=== PATIENT | female | born 1960 | race Hispanic/Latino ===

== ENCOUNTER 2017-10-13 18:33 | Inpatient (IN) | payer OTHER ==
[~2017-10-13] VITALS: Ht 152.4 cm; Wt 80.7 kg
[~2017-10-13 18:33] MED LIST: LEVEMIR100 UNIT/2; LEVOTHROID100 MC1; NOVOLOG100 UNIT/2; Z.0.ZOCOR20 MG
--- NOTE | 2017-10-13 19:19 | Diagnostic Imaging Report ---
CHEST SINGLE (PORTABLE), 10/13/2017 6:40 PM Technique: CHEST SINGLE (PORTABLE) Comparison: 08/02/2011 Clinical history: Shortness of breath Findings: See Impression Impression: 1. Stable enlarged cardiac silhouette. 2. Low lung volumes with right basilar opacity which could reflect atelectasis or pneumonia with small right effusion. Likely small left effusion. Recommend upright PA and lateral for better evaluation. 3. Probable underlying hiatal hernia. Signed by: Dr Cammie Centeno MD on 10/13/2017 7:16 PM
[2017-10-13] MEDS ORDERED: AZITHROMYCIN 500MG/NS 250 ML 250 ML IV STA (19:40)
[2017-10-13] MEDS ORDERED: CEFTRIAXONE SOD 1 GM VIAL IV ONE (19:45)
[2017-10-13 19:56] LABS: BASOPHILS % 0.8 % (0.0-1.0); HEMATOCRIT 28.2 % (34.2-44.1); HEMOGLOBIN 8.6 g/dL (12.0-16.0); LYMPHOCYTES # (AUTO) 0.2 (1.0-3.2); LYMPHOCYTES % 6.7 % (18.0-39.1); MEAN CORPUSCULAR HEMOGLOBIN 30.4 pg (28-32); MEAN CORPUSCULAR HGB CONC 30.5 g/dL (31-35); MEAN CORPUSCULAR VOLUME 99.6 fL (81-99); MONOCYTES # (AUTO) 0.2 (0.2-0.8); MONOCYTES % 6.3 % (4.4-11.3); NEUTROPHILS # (AUTO) 2.2 (2.1-6.9); NEUTROPHILS % 85.8 % (38.7-80.0); PLATELET COUNT 223 x10e3/uL (140-360); RED BLOOD COUNT 2.83 x10e6/uL (3.6-5.1); RED CELL DISTRIBUTION WIDTH 15.2 % (11.7-14.4)
[2017-10-13 20:03] LABS: ABG HCO3 7 mmol/L (23-28); ABG PCO2 23 mmHg (41-51); ABG PH 7.06 (7.31-7.41); ABG PO2 121 mmHg (80-105)
[2017-10-13 20:07] LABS: INR 1.39
[2017-10-13 20:08] LABS: PARTIAL THROMBOPLASTIN TIME 23.7 seconds (23.8-35.5)
[2017-10-13] MEDS ORDERED: FUROSEMIDE INJ 10 MG/ML 4 ML VIAL IV ONE (20:15)
[2017-10-13 20:19] LABS: ALANINE AMINOTRANSFERASE 218 IU/L (0-55); ALBUMIN/GLOBULIN RATIO 0.8 (0.8-2.0); ALKALINE PHOSPHATASE 316 IU/L (40-150); BLOOD UREA NITROGEN 76 mg/dL (7-26); BUN/CREATININE RATIO 15 (6-25); CALCIUM 8.1 mg/dL (8.4-10.2); CHLORIDE 101 mmol/L (98-107); CREATINE KINASE 56 IU/L (29-168); CREATININE, SERUM 5.17 mg/dL (0.57-1.11); EST GLOMERULAR FILTRATION RATE 9 ML/MIN (60-); SODIUM 128 mmol/L (136-145)
[2017-10-13 20:56] LABS: CARBON DIOXIDE 6 mmol/L (22-29); GLUCOSE 724 mg/dL (74-118)
[2017-10-13] MEDS ORDERED: INSULIN REGULAR, HUMAN 100 UNIT/1 ML 3ML VIAL IV STA (21:01)
[2017-10-13] MEDS ORDERED: DEXTROSE 5%/0.45% SOD CHL 1,000 ML IV SCH (21:01)
[2017-10-13] MEDS ORDERED: SODIUM CHLORIDE 0.9% 1000ML 1,000 ML IV SCH (21:01)
[2017-10-13 21:10] LABS: CLARITY,URINE CLOUDY (CLEAR); COLOR,URINE YELLOW (YELLOW)
[2017-10-13 21:11] LABS: LEUKOCYTE ESTERASE ,URINE NEGATIVE (NEGATIVE); NITRITE,URINE NEGATIVE (NEGATIVE)
[2017-10-13 21:12] LABS: KETONES,URINE NEGATIVE (NEGATIVE); PROTEIN,URINE DIPSTICK 2+ (NEGATIVE); URINE UROBILINOGEN 0.2 mg/dL (0.2 - 1)
[2017-10-13 21:13] LABS: BILIRUBIN,URINE 1+ (NEGATIVE)
[2017-10-13] MEDS ORDERED: SODIUM CHLORIDE 0.9% 1000ML 1,000 ML ONE (21:13)
[2017-10-13] MEDS ORDERED: DEXTROSE 50% SYRINGE 50 ML IV PRN (21:15)
[2017-10-13] MEDS ORDERED: INSULIN REGULAR, HUMAN 3ML VL 1 UNIT in SODIUM CHLORIDE 0.9% 100 ML IV SCH ×2 (21:15)
[2017-10-13] MEDS ORDERED: POTASSIUM CHLORIDE 20MEQ/100ML 200 ML IV PRN (21:15)
[2017-10-13] MEDS ORDERED: INSULIN DETEMIR 100 UNIT/ML PEN SQ PRN (21:15)
[2017-10-13] MEDS ORDERED: SODIUM CHLORIDE 0.9% 100 ML ONE (21:15)
[2017-10-13] MEDS ORDERED: MAGNESIUM SULF 1GRAM/DEXTROSE 100 ML IV PRN ×2 (21:15→21:30)
[2017-10-13 21:29] LABS: RBC,URINE 0-5 /HPF (0-5); WBC,URINE (MAN) 0-5 /HPF (0-5)
[2017-10-13 21:30] LABS: AMORPHOUS SEDIMENT,URINE MODERATE (FEW); BACTERIA,URINE MODERATE /HPF; EPITHELIAL CELLS,URINE MODERATE /LPF
[2017-10-13] MEDS: SODIUM CHLORIDE 0.9% 1000ML 1,000 ML IV SCH (21:30)
[2017-10-13] MEDS: [UNRECOGNIZED DRUG - OTHER] IV SCH ×2 (21:31)
[2017-10-13] MEDS: SODIUM CHLORIDE 0.45% IV SCH ×2 (21:31)
[2017-10-13] MEDS: HUMAN IV SCH ×2 (21:31)
[2017-10-13] MEDS: INSULIN REGULAR IV SCH ×2 (21:31)
--- OUTSIDE RECORDS SUMMARY | 2017-10-13 22:20 | XMS REPORT ---
Author Author [facility] Address Unknown Phone Unavailable Care Team Providers Care Outboard Technician Name Role Phone ALYCE HOYT Unavailable Unavailable Problems This patient has no known problems. Allergies, Adverse Reactions, Alerts This patient has no known allergies or adverse reactions. Medications This patient has no known medications. Results Test Description Test Time Test Comments Text Results Atomic Results Result Comments CHEST SINGLE (PORTABLE) [place] [address] Patient Name: STEPHANIE GRAHAM MR #: [id number] : 1960 Age/Sex: 57/F Req #: [id number] Adm Physician: Ordered by: ALYCE HOYT MD Report #: [id number] Location: ER Room/Bed: Procedure: [id number] DX/CHEST SINGLE (PORTABLE) Exam Date: Exam Time: REPORT STATUS: Signed CHEST SINGLE (PORTABLE), 6:40 PM Technique: CHEST SINGLE (PORTABLE) Comparison: 08/02/2011 Clinical history: Shortness of breath Findings: See Impression Impression: 1. Stable enlarged cardiac silhouette. 2. Low lung volumes with right basilar opacity which could reflect atelectasis or pneumonia with small right effusion. Likely small left effusion. Recommend upright PA and lateral for better evaluation. 3. Probable underlying hiatal hernia. Signed by: Dr Rom Centeno MD on 10/13/2017 7:16 PM Dictated By: ROM CENTENO MD 15 Transcribed By: JADA on 10/13/171915 COPY TO: ALYCE HOYT MD
[2017-10-13] MEDS: FAMOTIDINE 20 MG/2 ML VIAL IV SCH ×2 (22:52→23:15)
[2017-10-14] VITALS (63 sets, daily range): BP systolic 107–157; BP diastolic 55–93
[2017-10-14 01:14] LABS: ANION GAP 21.8 mmol/L (8-16); CALCIUM 8.1 mg/dL (8.4-10.2); CREATININE, SERUM 5.13 mg/dL (0.57-1.11); MAGNESIUM 2.5 MG/DL (1.3-2.1); POTASSIUM 4.8 mmol/L (3.5-5.1)
[2017-10-14 01:37] LABS: CREATINE KINASE 54 IU/L (29-168)
[2017-10-14] MEDS ORDERED: DEXTROSE 5%/0.45% SOD CHL 1,000 ML IV ONE (04:52)
[2017-10-14 04:54] LABS: BASOPHILS % 0.3 % (0.0-1.0); EOSINOPHILS % 0.8 % (0.0-6.0); HEMATOCRIT 25.5 % (34.2-44.1); HEMOGLOBIN 8.3 g/dL (12.0-16.0); LYMPHOCYTES # (AUTO) 0.3 (1.0-3.2); LYMPHOCYTES % 7.7 % (18.0-39.1); MEAN CORPUSCULAR HEMOGLOBIN 30.3 pg (28-32); MEAN CORPUSCULAR HGB CONC 32.5 g/dL (31-35); MEAN CORPUSCULAR VOLUME 93.1 fL (81-99); MONOCYTES # (AUTO) 0.5 (0.2-0.8); NEUTROPHILS # (AUTO) 3.1 (2.1-6.9); NEUTROPHILS % 77.9 % (38.7-80.0); PLATELET COUNT 186 x10e3/uL (140-360); RED BLOOD COUNT 2.74 x10e6/uL (3.6-5.1); RED CELL DISTRIBUTION WIDTH 14.6 % (11.7-14.4)
[2017-10-14 05:10] LABS: ALBUMIN 2.9 g/dL (3.5-5.0); ALBUMIN/GLOBULIN RATIO 0.8 (0.8-2.0); ANION GAP 17.5 mmol/L (8-16); CALCIUM 8.3 mg/dL (8.4-10.2); CREATININE, SERUM 5.05 mg/dL (0.57-1.11); POTASSIUM 4.5 mmol/L (3.5-5.1)
[2017-10-14 05:34] LABS: CHOL/HDL RATIO 2.3 (3.0-3.6)
[2017-10-14 05:42] LABS: CREATINE KINASE 67 IU/L (29-168)
[2017-10-14] MEDS ORDERED: AMLODIPINE BESY10 MG PO (06:06)
[2017-10-14] MEDS ORDERED: METOPROLOL TART50 MG PO (06:07)
[2017-10-14] MEDS: HUMAN IV SCH ×2 (08:33)
[2017-10-14] MEDS: SODIUM CHLORIDE 0.45% IV SCH ×2 (08:33)
[2017-10-14] MEDS: [UNRECOGNIZED DRUG - OTHER] IV SCH ×2 (08:33)
[2017-10-14] MEDS: INSULIN REGULAR IV SCH ×2 (08:33)
[2017-10-14] MEDS: AZITHROMYCIN 500MG/NS 250 ML 250 ML IV SCH (09:18)
[2017-10-14] MEDS: FAMOTIDINE 20 MG/2 ML VIAL IV SCH (09:18)
[2017-10-14] MEDS: CEFTRIAXONE SOD 1 GM VIAL IV SCH ×2 (09:18→20:15)
[2017-10-14 09:57] LABS: ANION GAP 15.7 mmol/L (8-16); CALCIUM 8.2 mg/dL (8.4-10.2); CREATININE, SERUM 4.74 mg/dL (0.57-1.11); MAGNESIUM 2.4 MG/DL (1.3-2.1); POTASSIUM 4.7 mmol/L (3.5-5.1)
--- NOTE | 2017-10-14 11:51 | Diagnostic Imaging Report ---
PROCEDURE:ULTRASOUND GUIDANCE FOR VASCULAR ACCESS COMPARISON:None. INDICATIONS:HD Júnior cath in rt IJV FINDINGS:Right internal jugular vein is noted to be patent. Ultrasound guidance was utilized for access for temporary central venous hemodialysis catheter placement. CONCLUSION: Patent right internal jugular vein. Successful ultrasound guidance for central catheter placement. Dictated by: Froylan Ramos M.D. on 10/14/2017 at 11:53 Electronically approved by: Froylan Ramos M.D. on 10/14/2017 at 11:53
--- NOTE | 2017-10-14 11:54 | Diagnostic Imaging Report ---
PROCEDURE:NON-TUNNELLED CVC CATH PLACMNT COMPARISON:None. INDICATIONS: Renal failure COMPLICATIONS: None. MEDICATIONS: None. BLOOD LOSS: Less than 2 cc. PROCEDURE: The procedure was performed at the bedside in the intensive care unit. Focused sonographic evaluation of the right neck demonstrated a patent and compressible right internal jugular vein. A safe approach was determined. The right neck was prepped and draped in the usual sterile fashion. 1% lidocaine was infused into the subcutaneous tissues for local anesthesia. Utilizing direct sonographic guidance, a 21 gauge needle was advanced into the right internal jugular vein. A 0.018 inch wire was advanced centrally. An access sheath was placed over the wire to secure the vascular access. The wire was upsized to a 0.035 inch wire. Serial dilations were performed over the wire. A temporary double lumen hemodialysis catheter was advanced over the wire. The wire was removed. The catheter lumens demonstrated proper function with aspiration and flush of sterile saline. The catheter lumens were flushed with sterile saline. The catheter was secured to the skin with 3-0 Ethilon suture. A sterile dressing was applied. No immediate complications. The patient tolerated the procedure well. The patient remained in the intensive care unit in stable unchanged condition. A portable chest radiograph was ordered to confirm proper position of the catheter. CONCLUSION: Successful placement of right internal jugular temporary central venous hemodialysis catheter utilizing ultrasound guidance. Dictated by: Froylan Ramos M.D. on 10/14/2017 at 11:56 Electronically approved by: Froylan Ramos M.D. on 10/14/2017 at 11:56
--- NOTE | 2017-10-14 12:07 | Consultation ---
DATE OF CONSULTATION: October 14, 2017 HISTORY OF PRESENT ILLNESS: This is a 57-year-old lady who is currently in the ICU, a clinic patient of ours, underlying chronic kidney disease, stage 4, nearing end-stage renal disease. She was found to have advanced kidney failure with no urine output. Anemic with hemoglobin 8.3. Chemistries: Potassium 4.7. Bicarbonate 17. Creatinine 4.7. Magnesium 2.4. She is currently lying supine. She complains of weakness and nausea. No vomiting. No hematemesis. No melena. No chest pains. Has had blood and urine cultures drawn. Urinalysis shows relatively benign microscopy but 2+ positive protein, 2+ positive glucose. She had significantly elevated blood sugar when she had first come. There was no acetone done. Dr. Shetty of endocrinology consulted. PAST MEDICAL HISTORY: Significant for diabetic nephropathy, neuropathy, retinopathy, hypertension. SOCIAL HISTORY: Does not smoke or drink. FAMILY HISTORY: Significant for hypertension. CURRENT MEDICATIONS: Please see MAR for details. Apparently on azithromycin. D5 half-NS which has been stopped. She was given apparent potassium supplementation. She is currently on NS at 50 mL an hour. Ceftriaxone 1 gram q.12. Famotidine 20 mg IV q.12. Insulin. PHYSICAL EXAMINATION GENERAL: Awake, alert, lying supine, no apparent distress. VITALS: Blood pressure 125/74. Pulse rate 73. Afebrile. HEAD AND NECK: Corneas clear. Oral mucosa dry. Neck veins flat. LUNGS: Clear. No rales. HEART: S1, S2 audible. ABDOMEN: Otherwise soft and nontender. LOWER EXTREMITIES: There is 1+ edema. IMPRESSION AND PLAN 1. Advanced kidney failure. 2. Metabolic acidosis. 3. Uncontrolled diabetes. 4. Possible diabetic ketoacidosis. 5. Evidence of edema and third-spacing. 6. Proteinuria. 7. Underlying diabetic nephropathy. 8. Chronic kidney disease, stage 4 now, probably chronic kidney disease, stage 5. Will initiate hemodialysis, patient agrees. I will discuss with Dr. Lucio. Job#: [id number]
[2017-10-14] MEDS ORDERED: SODIUM CHLORIDE 0.9% 1000ML 1,000 ML ONE (12:12)
[2017-10-14] MEDS ORDERED: ALBUMIN HUMAN 100 ML IV ONE (12:13)
[2017-10-14] MEDS ORDERED: MANNITOL 25% 12.5GM/50ML 100 ML ONE (12:13)
--- NOTE | 2017-10-14 13:07 | Diagnostic Imaging Report ---
PROCEDURE: A single AP view of the chest. COMPARISON: Portable chest 10/14/2017. INDICATIONS: HD CATHETER PLACEMENT FINDINGS: Lines/tubes: Right internal jugular temporary central venous catheter with tip projecting over the expected region of the superior vena cava. Lungs: The lungs are well inflated and clear. There is no evidence of pneumonia or pulmonary edema. Pleura: Moderate right and small left pleural effusions. No pneumothorax. Heart and mediastinum: The heart and the mediastinum are unremarkable. Atherosclerotic calcifications. Bones: No acute bony abnormality. IMPRESSION: No acute radiographic abnormality. Dictated by: Froylan Ramos M.D. on 10/14/2017 at 13:09 Electronically approved by: Froylan Ramos M.D. on 10/14/2017 at 13:09
--- NOTE | 2017-10-14 13:12 | Consultation ---
DATE OF CONSULTATION: October 14, 2017 CARDIOLOGY CONSULTATION REASON FOR CONSULTATION: Evaluate cardiac status. HISTORY: This is a 57-year-old lady, who is known with longstanding history of diabetes mellitus. Patient is followed in the renal clinic and by Dr. Lucio. She is stage-4 renal failure in the office. For the last 4 or 5 days, she was not feeling well with more severe shortness of breath. She came to the emergency room. She was in diabetic ketoacidosis with CO2 of 10. Her ABG showed pH of only 7.06 and pO2 121. Also was in worsening renal failure. Patient treated aggressively with IV fluids and Lasix for diabetic ketoacidosis. She is having shortness of breath. Her EKG showed abnormality with prolongation of QT. Cardiac consultation is obtained. I visited with the patient, and she denied having any cardiac history before; i.e., no known myocardial infarction or congestive heart failure. She does have easy fatigability and shortness of breath on minimal activity for a few years. Her activities are limited by her bilateral Charcot ankle joints. Even at this level of activity, she gets "short-winded" and tires very easily. She does have occasional cough. No syncope or presyncope. Feet swelling is noted more than once. REVIEW OF SYSTEMS GENERAL: No fever. No chills. Failure to thrive recently. CARDIAC: As per above. PULMONARY: Shortness of breath on exertion. GI: Bloating, indigestion, occasional nausea, no hematemesis. : Increased frequency of urination but small quantity. MUSCULAR: Backache, joint aches. NEUROLOGIC: Severe peripheral neuropathy symptoms. No seizures. No localized weakness. SOCIAL HISTORY: She is . She is a nonsmoker and not an alcohol drinker. HOME MEDICATIONS: Include: 1. Norvasc 10 mg a day. 2. NovoLog 10 mg t.i.d. 3. Metoprolol 50 mg twice a day. 4. Synthroid 150 mcg a day. 5. Zocor 20 mg a day. ALLERGIES: MEPERIDINE. PAST MEDICAL HISTORY 1. Diabetes mellitus, severe end-organ damage. 2. Chronic renal insufficiency. 3. Severe peripheral neuropathy. 4. Admission with diabetic ketoacidosis. 5. History of bilateral feet ulcers and osteomyelitis treated with 6 months of antibiotic in 2010. 6. Chronic anemia. 7. Chronic renal insufficiency. 8. . 9. Bilateral foot surgery and debridement. 10. Hiatus hernia. FAMILY HISTORY: Father , questionable cause of . He was diabetic. Mother is alive. She is diabetic, and several of her siblings are diabetic but no myocardial infarction. PHYSICAL EXAMINATION VITALS: Height of 5 feet, weight of 178 pounds. Blood pressure 130/60. Heart rate of 80. Respiratory rate of 18. Afebrile. HEENT: Pupils are reactive. NECK: No elevation of jugular venous pulsation. CHEST: Decreased air entry with a few crackles. HEART: PMI at 1st left intercostal space, normal 1st and 2nd heart sounds. ABDOMEN: Soft with good bowel sounds. Scar of previous is noted with deformity of the abdominal wall. EXTREMITIES: Bilateral edema. Marked deformity of the feet at the ankle joints. NEUROLOGIC: Awake, alert, oriented, able to move all extremities. LAB DATA: Admission ABG showed pH of 7.06. Bicarb was only at 10. BUN at 74 and creatinine of 4.7. Hemoglobin of 8.3, hematocrit 25%, white blood cells 3.9. IMPRESSION AND PLAN 1. Diabetes mellitus with severe end-organ damage. 2. Chronic renal insufficiency. 3. Hypertension. 4. Hypercholesterolemia. 5. Chronic anemia. 6. Admission with diabetic ketoacidosis. 7. Charcot joint and deformity of the feet. 8. Peripheral arterial vascular disease. 9. History to suggest either diastolic heart failure or possible angina prior to admission. 10. Prolonged QT noted on EKG on admission, most likely secondary to marked electrolyte imbalance. Cardiac-oden, my recommendation is to review her echocardiogram ordered. Will control her blood pressure and her volume status. Will correct her diabetic ketoacidosis. Further steps to be done as needed. Cardiac, we are leaning towards more of a conservative approach until the acute illness resolves. Probably will consider cardiac stress test in the future. Will follow the patient's progression with you and would like to thank you for your kind referral. Job#: [id number]
[2017-10-14] MEDS ORDERED: INSULIN REGULAR, HUMAN 3ML VL 100 UNIT in SODIUM CHLORIDE 0.45% 100 ML 99 ML IV SCH ×2 (14:06)
[2017-10-14] MEDS ORDERED: DEXTROSE 50% SYRINGE 50 ML IV PRN (14:15)
--- NOTE | 2017-10-14 14:49 | Consultation ---
DATE OF CONSULTATION: October 14, 2017 ENDOCRINE CONSULTATION Thank you very much for referring this patient. This is a 57-year-old female who was referred to me for evaluation of uncontrolled diabetes mellitus and diabetic ketoacidosis. According to the patient, she came to the hospital with a history of shortness of breath and some chest discomfort. On further evaluation, her blood sugar was found to be 724. Anion gap was 27, and the BUN and creatinine was 76 and 5.17. Her liver enzymes were also significantly elevated. Patient is a known diabetic for almost 25 years, and takes insulin from [employer] twice a day. She also was found to have congestive cardiac failure. Patient has been dialyzed. PHYSICAL EXAMINATION GENERAL: Today, patient is alert, awake and a little bit apprehensive. VITALS: Her heart rate is around 100, blood pressure 130/80 mmHg. HEENT: Essentially unremarkable. Thyroid is palpable. Clinically, she is near euthyroid. CHEST: Bilateral vesicular breathing. She has mild bronchospasm. CARDIAC: Both 1st and 2nd heart sounds. There is no 3rd or 4th heart sound. There is an ejection systolic murmur, grade 2/6. EXTREMITIES: She has bilateral pedal edema and slightly distended abdomen. CLINICAL IMPRESSION 1. Diabetes mellitus, type 2, uncontrolled with complications. 2. Diabetic ketoacidosis. 3. [id number] chronic renal failure. 4. Hypertension. The plan at this time is to adjust the insulin drip settings. Monitor her blood sugars closely. Will do a hemoglobin A1c and thyroid function test. Patient needs extensive diabetic and dietary education as well. Thanks for referring this patient. Will follow this patient with you. Job#: [id number] MAURA SOLO
[2017-10-14] MEDS ORDERED: HEPARIN SOD (PORCINE) 1000 UNIT/ML SDV ONE (15:17)
[2017-10-14] MEDS: SODIUM CHLORIDE 0.9% 1000ML 1,000 ML IV SCH (18:49)
[2017-10-14 20:35] LABS: ANION GAP 15.2 mmol/L (8-16); CALCIUM 8.1 mg/dL (8.4-10.2); CREATININE, SERUM 3.49 mg/dL (0.57-1.11); POTASSIUM 4.2 mmol/L (3.5-5.1)
[2017-10-15] VITALS (52 sets, daily range): BP systolic 131–159; BP diastolic 69–132
[2017-10-15 06:19] LABS: BASOPHILS % 0.5 % (0.0-1.0); EOSINOPHILS # (AUTO) 0.1 (0.0-0.4); EOSINOPHILS % 2.2 % (0.0-6.0); HEMATOCRIT 27.4 % (34.2-44.1); HEMOGLOBIN 9.3 g/dL (12.0-16.0); LYMPHOCYTES # (AUTO) 0.4 (1.0-3.2); LYMPHOCYTES % 7.9 % (18.0-39.1); MEAN CORPUSCULAR HEMOGLOBIN 30.6 pg (28-32); MEAN CORPUSCULAR HGB CONC 33.9 g/dL (31-35); MEAN CORPUSCULAR VOLUME 90.1 fL (81-99); MONOCYTES # (AUTO) 0.3 (0.2-0.8); MONOCYTES % 5.9 % (4.4-11.3); NEUTROPHILS # (AUTO) 4.6 (2.1-6.9); NEUTROPHILS % 83.1 % (38.7-80.0); PLATELET COUNT 195 x10e3/uL (140-360); RED BLOOD COUNT 3.04 x10e6/uL (3.6-5.1); RED CELL DISTRIBUTION WIDTH 14.7 % (11.7-14.4)
[2017-10-15 06:55] LABS: ALBUMIN 2.6 g/dL (3.5-5.0); ALBUMIN/GLOBULIN RATIO 0.8 (0.8-2.0); ANION GAP 14.9 mmol/L (8-16); CALCIUM 8.1 mg/dL (8.4-10.2); CREATININE, SERUM 3.41 mg/dL (0.57-1.11); POTASSIUM 3.9 mmol/L (3.5-5.1)
[2017-10-15 07:50] LABS: CREATINE KINASE 42 IU/L (29-168)
[2017-10-15 08:02] LABS: EOSINOPHILS % (MANUAL) 4 % (0-7); LYMPHOCYTES % (MANUAL) 73 % (19-48); MONOCYTES % (MANUAL) 5 % (3.4-9.0); NEUTROPHILS % (MANUAL) 18 % (40-74)
[2017-10-15 08:03] LABS: ANISOCYTOSIS SLIGHT; HYPOCHROMASIA SLIGHT; PLATELET ESTIMATE ADEQUATE; PLATELET MORPHOLOGY COMMENT NORMAL; SMUDGE CELLS FEW
[2017-10-15 08:04] LABS: RBC MORPHOLOGY COMMENT ABNORMAL
[2017-10-15 08:31] LABS: FREE T4 (FREE THYROXINE) 0.93 ng/dL (0.9-1.8); THYROID STIMULATING HORMONE 1.382 uIU/mL (0.350-4.940)
[2017-10-15] MEDS: AZITHROMYCIN 500MG/NS 250 ML 250 ML IV SCH (08:45)
[2017-10-15] MEDS: CEFTRIAXONE SOD 1 GM VIAL IV SCH (08:45)
[2017-10-15] MEDS: INSULIN DETEMIR 100 UNIT/ML PEN SQ SCH (10:06)
[2017-10-15] MEDS: FAMOTIDINE 20 MG/2 ML VIAL IV SCH (11:00)
--- NOTE | 2017-10-15 11:31 | Diagnostic Imaging Report ---
PROCEDURE:US RETROPERITONEAL ( KIDNEY ). COMPARISON:None. INDICATIONS:KIDNEY FAILURE TECHNIQUE: Bernal-scale and color sonographic images of the bilateral kidneys and bladder where obtained in transverse and longitudinal planes. FINDINGS: RIGHT KIDNEY: Measures 9.3 x 3.6 x 4.2 cm, cortex 1.2 cm Cysts: None Solid masses: None Stones: None Hydronephrosis: None Echogenicity: None LEFT KIDNEY: Measures 8.3 x 4.1 x 4.2 cm, cortex1.7 cm Cysts: None Solid masses: None Stones: None Hydronephrosis: None Echogenicity: None Bladder: Bladder is decompressed by a Martins catheter. Other: There are bilateral pleural effusions. CONCLUSION: No evidence of hydronephrosis. Jose Luis Mckeon D.O. Dictated by: Jose Luis Mckeon D.O. on 10/15/2017 at 11:32 Electronically approved by: Jose Luis Mckeon D.O. on 10/15/2017 at 11:32
--- NOTE | 2017-10-15 13:16 | History and Physical ---
CHIEF COMPLAINT: DKA with end-stage renal disease requiring dialysis. HISTORY OF PRESENT ILLNESS: Patient is a 57-year-old female who was told that she needs dialysis, but she was noncompliant and not getting the treatment. The patient came in with blood sugar in the 700s, metabolic acidosis, DKA, and renal failure. The patient required emergent dialysis. She is otherwise stable. At baseline, she does have diabetes, type 2, uncontrolled with multiple complications including end-stage renal disease. Hypertension and hyperlipidemia. PAST SURGICAL HISTORY: Noncontributory. SOCIAL HISTORY: Patient does not smoke or use alcohol. No recreational drugs. HOME MEDICATIONS: Not available. ALLERGIES: MEPERIDINE. REVIEW OF SYSTEMS: Significant for acute dialysis with dehydration, ketoacidosis. PHYSICAL EXAMINATION VITAL SIGNS: Temperature 98, blood pressure 141/76, pulse rate 85, respirations 18. GENERAL: The patient is fatigued and not in any distress. HEENT: Normocephalic and atraumatic. Anicteric. NECK: No palpable JVD. PULMONARY: Diminished breath sounds bilaterally. CARDIOVASCULAR: S1 and S2, regular rate and rhythm. ABDOMEN: Soft. EXTREMITIES: There is 1+ edema. NEURO: No focal deficit. LABORATORY: WBC 2.5, hemoglobin 8.6, hematocrit 28.2, platelets 223. Sodium is 128, potassium 6.0, chloride 101, bicarb 6, BUN 76, creatinine 5.2, glucose 724. Elevation of liver enzymes. IMPRESSION 1. Diabetic ketoacidosis. 2. Severe metabolic acidosis. 3. End-stage renal disease requiring dialysis. 4. Acute hepatitis, most likely nonviral. PLAN: Dialysis. Electrolyte disorder correction. Insulin drip. DKA insulin protocol. Dr. Jennifer Alcantara and Dr. Rashaad Shetty on consult. IV fluids. Check multiple labs. Check lactic acid. Will monitor the patient closely in ICU on dialysis. Job#: [id number]
[2017-10-15] MEDS: SODIUM CHLORIDE 0.9% 1000ML 1,000 ML IV SCH (13:29)
[2017-10-15] MEDS ORDERED: HEPARIN SOD (PORCINE) 1000 UNIT/ML SDV ONE (13:34)
[2017-10-15] MEDS: INSULIN LISPRO 100 UNIT/1 ML 3ML VIAL SQ SCH ×3 (16:30→21:00)
[2017-10-16] VITALS (44 sets, daily range): BP systolic 127–169; BP diastolic 70–89
[2017-10-16] MEDS: CEFTRIAXONE SOD 1 GM VIAL IV SCH ×2 (00:01→14:10)
[2017-10-16] MEDS: FAMOTIDINE 20 MG/2 ML VIAL IV SCH ×3 (00:01→23:32)
[2017-10-16 06:16] LABS: BASOPHILS # (AUTO) 0.1 (0.0-0.1); EOSINOPHILS # (AUTO) 0.1 (0.0-0.4); EOSINOPHILS % 2.2 % (0.0-6.0); HEMATOCRIT 29.8 % (34.2-44.1); HEMOGLOBIN 9.8 g/dL (12.0-16.0); LYMPHOCYTES # (AUTO) 0.3 (1.0-3.2); LYMPHOCYTES % 5.9 % (18.0-39.1); MEAN CORPUSCULAR HEMOGLOBIN 30.5 pg (28-32); MEAN CORPUSCULAR HGB CONC 32.9 g/dL (31-35); MEAN CORPUSCULAR VOLUME 92.8 fL (81-99); MONOCYTES # (AUTO) 0.3 (0.2-0.8); MONOCYTES % 5.7 % (4.4-11.3); NEUTROPHILS # (AUTO) 4.3 (2.1-6.9); NEUTROPHILS % 84.8 % (38.7-80.0); PLATELET COUNT 185 x10e3/uL (140-360); RED BLOOD COUNT 3.21 x10e6/uL (3.6-5.1); RED CELL DISTRIBUTION WIDTH 14.9 % (11.7-14.4)
[2017-10-16 06:47] LABS: ALBUMIN 2.8 g/dL (3.5-5.0); ALBUMIN/GLOBULIN RATIO 0.8 (0.8-2.0); ANION GAP 20.7 mmol/L (8-16); CALCIUM 8.3 mg/dL (8.4-10.2); CREATININE, SERUM 2.75 mg/dL (0.57-1.11); POTASSIUM 4.7 mmol/L (3.5-5.1)
[2017-10-16] MEDS: INSULIN LISPRO 100 UNIT/1 ML 3ML VIAL SQ SCH ×7 (06:55→20:40)
[2017-10-16] MEDS: ASPIRIN 81 MG ENTERIC COATED PO SCH (09:11)
[2017-10-16] MEDS: SODIUM BICARBONATE 650 MG TAB PO SCH ×2 (09:11→17:52)
[2017-10-16] MEDS: INSULIN DETEMIR 100 UNIT/ML PEN SQ SCH (09:12)
[2017-10-16] MEDS: SODIUM CHLORIDE 0.9% 1000ML 1,000 ML IV SCH (09:15)
[2017-10-16 09:55] LABS: % IRON SATURATION 31 % (15-50); IRON 75 ug/dL (50-170); TOTAL IRON BINDING CAPACITY 241 ug/dL (261-478); TRANSFERRIN 172 mg/dL (180-382)
[2017-10-16] MEDS ORDERED: SODIUM CHLORIDE 0.9% 250ML 500 ML IV PRN (12:45)
[2017-10-16] MEDS ORDERED: ALBUMIN HUMAN 12.5GM / 50ML IV PRN (12:45)
[2017-10-16] MEDS ORDERED: HEPARIN SOD (PORCINE) 1000 UNIT/ML SDV IV PRN (12:45)
[2017-10-16] MEDS ORDERED: MANNITOL 25% 12.5GM/50 ML VIAL IV PRN (12:45)
[2017-10-16] MEDS ORDERED: SODIUM CHLORIDE 0.9% 1000ML 2,000 ML IV PRN (12:45)
[2017-10-16] MEDS: AZITHROMYCIN 500MG/NS 250 ML 250 ML IV SCH (14:10)
[2017-10-17] VITALS (8 sets, daily range): BP systolic 158–170; BP diastolic 74–85
[2017-10-17] MEDS: CEFTRIAXONE SOD 1 GM VIAL IV SCH ×2 (02:00→15:07)
[2017-10-17] MEDS: INSULIN LISPRO 100 UNIT/1 ML 3ML VIAL SQ SCH ×7 (07:30→17:54)
[2017-10-17] MEDS: ASPIRIN 81 MG ENTERIC COATED PO SCH (09:00)
[2017-10-17] MEDS ORDERED: SODIUM CHLORIDE 0.9% 500ML 500 ML ONE ×2 (11:49→11:51)
[2017-10-17] MEDS ORDERED: LIDOCAINE HCL 2% LOCAL 20 ML VIAL ONE (11:49)
[2017-10-17] MEDS ORDERED: HEPARIN SOD (PORCINE) 1000 UNIT/ML 30ML ONE (11:50)
[2017-10-17] MEDS ORDERED: FENTANYL CITRATE/PF 100MCG/2 ML INJ ONE (11:51)
[2017-10-17] MEDS ORDERED: MIDAZOLAM HCL 2 MG/2 ML VIAL ONE (11:51)
[2017-10-17] MEDS: FAMOTIDINE 20 MG/2 ML VIAL IV SCH (13:25)
[2017-10-17] MEDS: AZITHROMYCIN 500MG/NS 250 ML 250 ML IV SCH (13:25)
[2017-10-17] MEDS: SODIUM BICARBONATE 650 MG TAB PO SCH ×2 (13:25→16:24)
--- NOTE | 2017-10-17 13:40 | Diagnostic Imaging Report ---
Date and Time: 10/17/2017 at 1152 hours Procedure: Right internal jugular tunneled hemodialysis catheter placement salt operator: Dr. May Pre-operative diagnosis: End-stage renal disease Post-operative diagnosis: End-stage renal disease Conscious Sedation: Versed 1 mg and Fentanyl 50 mcg. The patient's heart rate and pulse oximetry were continuously monitored by the interventional radiology nurse. Blood pressure was monitored at 5 minute intervals. Additional Medications: Lidocaine 1% for local anesthesia Fluoroscopy time: 1.4 minutes Dose-area Product: 363.0 cGycm2. Contrast used: 0 Estimated blood loss: Less than 5 cc Blood products administered: None Specimens: None Implants: 16 Ecuadorean, 19 cm tip-cuff tunneled hemodialysis catheter Condition at completion of procedure: Stable Disposition: Catheter lab recovery DISCUSSION: Informed consent for the procedure was obtained from the patient after discussion of risks and benefits. The right neck and upper chest was prepped and draped in the standard sterile fashion after the patient was placed in the supine position on the fluoroscopic table. 1% lidocaine was administered into the skin and subcutaneous tissues of the right lower neck for local anesthesia. Then, under continuous sonographic guidance, a 21-gauge micropuncture needle was advanced into the right internal jugular vein. A 0.018 inch wire was advanced centrally under fluoroscopic guidance. The needle was then removed and access was secured with a micropuncture sheath. Intravascular length to the upper right atrium was determined using the microwire, which was then removed along with the inner dilator of the micropuncture sheath. A 0.035 inch Amplatz was then advanced through the micropuncture sheath into the inferior vena cava under fluoroscopic guidance. Attention was then turned to the right upper chest. A suitable catheter exit site was determined, approximately 3 fingerbreadths inferior to the clavicle. The skin was marked. 1% lidocaine was used to anesthetize a subcutaneous tract extending from the planned catheter exit site to the venotomy at the right lower neck. A stab incision was made on the right upper chest. Subsequently, the catheter was tunneled from the exit site of the right upper chest to the venotomy at the right lower neck. The retention cuff of the catheter was advanced well into the subcutaneous tunnel. The micropuncture sheath was then removed over the wire and the tract was serially dilated. Finally, a 16.5-Ecuadorean peel-away sheath was advanced over the wire under fluoroscopic guidance. The wire and inner dilator of the sheath were removed and the catheter was advanced through the peel-away sheath, which was then broken and removed. The catheter tip was positioned in the upper right atrium. The proximal catheter lumen showed sluggish bidirectional flow. The catheter was therefore advanced slightly into the mid right atrium, with brisk bidirectional flow noted in both catheter lumens. Each lumen was then packed with 2000 units of heparin. The catheter was secured at the exit site on the right upper chest with monofilament nylon suture. The venotomy at the right lower neck was closed with tissue adhesive. A sterile dressing was applied. The patient tolerated the procedure well without immediate complication. Findings: Patent right internal jugular vein. IMPRESSION: Successful placement of a 16 Ecuadorean, 19 cm tip-cuff tunneled hemodialysis catheter by a right internal jugular approach. Signed by: Dr. Reinaldo May M.D. on 10/17/2017 1:37 PM
[2017-10-17] MEDS ORDERED: INSULIN DETEMIR 100 UNIT/ML PEN SQ SCH ×2 (17:00)
--- NOTE | 2017-10-17 19:53 | Consultation ---
DATE OF CONSULTATION: October 17, 2017 REFERRING PHYSICIANS: Dr. Su and Dr. Alcantara. HISTORY OF PRESENT ILLNESS: Patient is a 57-year-old female admitted to the hospital with diabetic ketoacidosis and end-stage renal disease. She had emergent hemodialysis and has been started on regular hemodialysis. She needs access for long-term hemodialysis. Request is made for arteriovenous fistula. PAST MEDICAL HISTORY: Significant for diabetes, chronic kidney disease, hypertension, hyperlipidemia. MEDICATIONS: Listed in the chart. ALLERGIES: SHE HAS ALLERGY TO MEPERIDINE. FAMILY HISTORY: Noncontributory. SOCIAL HISTORY: She does not smoke cigarettes or drink alcohol. REVIEW OF SYSTEMS: As stated above. She has no chest pain and no shortness of breath at this time. PHYSICAL EXAMINATION VITAL SIGNS: Normal. She is afebrile. GENERAL: The patient is awake and alert. HEENT: Unremarkable. Sclerae are nonicteric. NECK: Supple, with no masses. LUNGS: Equal breath sounds are clear bilaterally. CARDIAC: Regular rate and rhythm. No murmur. ABDOMEN: Soft with no tenderness. EXTREMITIES: Left arm has good radial pulse and good brachial pulse. Peripheral veins are marginal for fistula, although the antecubital veins appear to be patent. ASSESSMENT: This is a 57-year-old female with end-stage renal disease, needs access for long-term hemodialysis. PLAN: Left arm arteriovenous fistula to be done tomorrow. Procedure was explained to the patient including risks, benefits and alternatives. She understands the procedure. She has had the opportunity to ask questions. Thank you for asking me to see Ms. Cali. Job#: [id number]
[2017-10-17] MEDS: INSULIN DETEMIR 100 UNIT/ML PEN SQ SCH (20:30)
[2017-10-17] MEDS: FAMOTIDINE 20 MG TAB PO SCH (20:45)
[2017-10-18] VITALS (7 sets, daily range): BP systolic 140–166; BP diastolic 68–81
[2017-10-18] MEDS: METOPROLOL TARTRATE 50 MG TAB PO SCH ×3 (00:05→18:12)
[2017-10-18] MEDS: CEFTRIAXONE SOD 1 GM VIAL IV SCH ×2 (02:10→14:00)
[2017-10-18] MEDS: INSULIN LISPRO 100 UNIT/1 ML 3ML VIAL SQ SCH ×7 (07:30→21:00)
--- NOTE | 2017-10-18 08:18 | Progress Note ---
DATE: October 18, 2017 Still some swelling. No nausea or vomiting. Breathing is better. PHYSICAL EXAMINATION GENERAL: Laying in bed in no distress. VITALS: Temperature 95.5, pulse 81, blood pressure 154/74. CHEST: Clear. EXTREMITIES: Edema plus. CARDIAC: Normal heart tones. Question of S4. NEURO: Appears to be alert and appropriate. ASSESSMENT 1. End-stage renal disease. 2. Diabetic nephropathy. 3. Anemia of chronic kidney disease. 4. Fluid overload. 5. Hypertension. 6. Acidosis, controlled. PLAN: Discontinue IV fluids. Hemodialysis again today. Plan on resting. Await placement. Get AV fistula today. Will follow along. Thank you for allowing us to participate in Ms. Cali's care. Please see my orders for dialysis detail. Job#: [id number] MAURA
[2017-10-18] MEDS: FAMOTIDINE 20 MG TAB PO SCH ×2 (09:00→21:07)
[2017-10-18] MEDS: INSULIN DETEMIR 100 UNIT/ML PEN SQ SCH (09:00)
[2017-10-18] MEDS: ASPIRIN 81 MG ENTERIC COATED PO SCH (09:00)
[2017-10-18] MEDS: SODIUM BICARBONATE 650 MG TAB PO SCH ×2 (09:00→18:12)
[2017-10-18] MEDS: AMLODIPINE BESYLATE 10 MG TAB PO SCH (09:00)
[2017-10-18] MEDS: AZITHROMYCIN 500MG/NS 250 ML 250 ML IV SCH (09:44)
[2017-10-18 14:34] LABS: ANION GAP 15.4 mmol/L (8-16); BLOOD UREA NITROGEN 5 mg/dL (7-26); BUN/CREATININE RATIO 7 (6-25); CALCIUM 8.9 mg/dL (8.4-10.2); CARBON DIOXIDE 27 mmol/L (22-29); CHLORIDE 101 mmol/L (98-107); CREATININE, SERUM 0.74 mg/dL (0.57-1.11); EST GLOMERULAR FILTRATION RATE > 60 ML/MIN (60-); GLUCOSE 147 mg/dL (74-118); POTASSIUM 3.4 mmol/L (3.5-5.1); SODIUM 140 mmol/L (136-145)
[2017-10-18] MEDS ORDERED: SODIUM CHLORIDE 0.9% 100 ML 0 ML ONE (14:41)
[2017-10-18] MEDS ORDERED: HEPARIN SOD (PORCINE) 5,000 UNIT/ML VIAL ONE ×2 (14:41)
[2017-10-18] MEDS ORDERED: SODIUM CHLORIDE 0.9% 500ML 500 ML ONE (14:43)
[2017-10-18] MEDS ORDERED: ACETAMINOPHEN 1000 MG/100 ML 100 ML IV ONE (14:51)
[2017-10-18] MEDS ORDERED: THROMBIN FOR SOLN 5,000 UNIT VIAL ONE (15:58)
[2017-10-18] MEDS ORDERED: GELATIN SPONGE SZ 100 ONE (15:58)
[2017-10-18] MEDS ORDERED: HYDROCODONE/APAP 5MG-325MG TAB PO PRN (16:30)
[2017-10-18] MEDS ORDERED: PROPOFOL IV EMULSION 10 MG/ML 20 ML VIAL ONE (17:31)
[2017-10-18] MEDS ORDERED: KETOROLAC TROMETHAMINE 30 MG/ML VIAL ONE (17:31)
[2017-10-18] MEDS ORDERED: DEXAMETHASONE SOD PHOS INJ 4 MG/ML VIAL ONE (17:31)
[2017-10-18] MEDS ORDERED: SEVOFLURANE INHAL SOLN 250 ML PEN BTL ONE (17:31)
[2017-10-18] MEDS ORDERED: CEFAZOLIN SOD 1 GM VIAL ONE (17:31)
[2017-10-18] MEDS ORDERED: EPHEDRINE SULFATE INJ 50 MG/10 ML SYR ONE (17:31)
[2017-10-18] MEDS ORDERED: ONDANSETRON HCL INJ 2 MG/ML VIAL ONE (17:31)
--- NOTE | 2017-10-18 17:39 | Operative Report ---
DATE OF PROCEDURE: October 18, 2017 PREOPERATIVE DIAGNOSIS: End-stage renal disease. POSTOPERATIVE DIAGNOSIS: End-stage renal disease. OPERATION PERFORMED: Creation of left arm brachiocephalic arteriovenous fistula. EMPLOYMENT TRAINING SPECIALIST: None. ANESTHESIA: General. INDICATIONS AND FINDINGS: The patient is a 57-year-old female who was admitted to the hospital with end-stage renal disease. She is started on dialysis via catheter but would need access for long-term hemodialysis. At surgery there was an adequate cephalic vein in the antecubital area and a good pulse in the brachial artery. At the end of the procedure, there was palpable thrill over the fistula and palpable pulse in the brachial artery and radial artery distal to the fistula. TECHNIQUE: After adequate general anesthesia with the patient in the supine position, left arm was prepped and draped in sterile fashion with Waucoma solution. Transverse incision was made in the left antecubital area and carried down through subcutaneous tissue. Cephalic vein was identified and dissected free proximally and distally as much as possible. The side branch was ligated with Hemoclips. More medial incision was carried deeper and the brachial artery dissected free and controlled with vessel loop. The cephalic vein was then divided distally as possible. Distal portion ligated with Hemoclips. The vein was fashioned appropriately. Patient was given 5000 units of intravenous Heparin. The brachial artery was clamped proximally and distally. Arteriotomy was made. Anastomosis made between the end of the vein and side of the artery with running suture of 6-0 Prolene. Once flow was allowed through the fistula, there was a palpable thrill over the fistula. Small amount of bleeding was controlled with Gelfoam and thrombin and Surgicel gauze. The wound was inspected for hemostasis, which was seen to be adequate. The wound was irrigated with antibiotic solution and inspected for hemostasis, which was seen to be adequate. The wound was then closed with 3-0 Vicryl subcutaneous tissue and julisa for the skin. Sterile dressing was applied. Patient tolerated procedure well. Estimated blood loss was 20 mL. There were no complications. All counts were correct. Patient was taken to the recovery room in satisfactory condition. Job#: [id number]
[2017-10-19] VITALS: BP 126/66
[2017-10-19] MEDS: CEFTRIAXONE SOD 1 GM VIAL IV SCH ×2 (02:00→16:30)
[2017-10-19] MEDS: INSULIN DETEMIR 100 UNIT/ML PEN SQ SCH ×3 (02:06→20:32)
[2017-10-19 04:00] VITALS: BP 168/77
[2017-10-19] MEDS: INSULIN LISPRO 100 UNIT/1 ML 3ML VIAL SQ SCH ×7 (07:30→20:18)
[2017-10-19 07:41] VITALS: BP 171/80
[2017-10-19] MEDS: FAMOTIDINE 20 MG TAB PO SCH ×2 (09:00→20:51)
[2017-10-19] MEDS: SODIUM BICARBONATE 650 MG TAB PO SCH ×2 (09:00→17:12)
[2017-10-19] MEDS: ASPIRIN 81 MG ENTERIC COATED PO SCH (09:00)
[2017-10-19] MEDS: METOPROLOL TARTRATE 50 MG TAB PO SCH ×2 (09:00→17:10)
[2017-10-19] MEDS: AMLODIPINE BESYLATE 10 MG TAB PO SCH (09:00)
[2017-10-19] MEDS: AZITHROMYCIN 500MG/NS 250 ML 250 ML IV SCH (09:00)
[2017-10-19 09:23] VITALS: BP 171/80
[2017-10-19 16:03] VITALS: BP 145/67
[2017-10-19 20:00] VITALS: BP 136/65
[2017-10-20] VITALS (7 sets, daily range): BP systolic 139–171; BP diastolic 64–74
[2017-10-20] MEDS: CEFTRIAXONE SOD 1 GM VIAL IV SCH (02:00)
[2017-10-20] MEDS: AZITHROMYCIN 500MG/NS 250 ML 250 ML IV SCH (07:57)
[2017-10-20] MEDS: SODIUM BICARBONATE 650 MG TAB PO SCH ×2 (07:57→17:17)
[2017-10-20] MEDS: FAMOTIDINE 20 MG TAB PO SCH ×2 (07:57→21:16)
[2017-10-20] MEDS: INSULIN LISPRO 100 UNIT/1 ML 3ML VIAL SQ SCH ×7 (07:57→21:00)
[2017-10-20] MEDS: INSULIN DETEMIR 100 UNIT/ML PEN SQ SCH ×2 (07:57→21:21)
[2017-10-20] MEDS: METOPROLOL TARTRATE 50 MG TAB PO SCH ×2 (07:57→17:17)
[2017-10-20] MEDS: ASPIRIN 81 MG ENTERIC COATED PO SCH (07:57)
[2017-10-20] MEDS: AMLODIPINE BESYLATE 10 MG TAB PO SCH (07:57)
[2017-10-20 09:19] LABS: BASOPHILS # (AUTO) 0.1 (0.0-0.1); EOSINOPHILS # (AUTO) 0.3 (0.0-0.4); HEMATOCRIT 28.8 % (34.2-44.1); HEMOGLOBIN 9.2 g/dL (12.0-16.0); LYMPHOCYTES # (AUTO) 0.5 (1.0-3.2); LYMPHOCYTES % 7.6 % (18.0-39.1); MEAN CORPUSCULAR HEMOGLOBIN 30.5 pg (28-32); MEAN CORPUSCULAR HGB CONC 31.9 g/dL (31-35); MEAN CORPUSCULAR VOLUME 95.4 fL (81-99); MONOCYTES # (AUTO) 0.3 (0.2-0.8); NEUTROPHILS # (AUTO) 5.1 (2.1-6.9); NEUTROPHILS % 82.2 % (38.7-80.0); PLATELET COUNT 129 x10e3/uL (140-360); RED BLOOD COUNT 3.02 x10e6/uL (3.6-5.1); RED CELL DISTRIBUTION WIDTH 14.1 % (11.7-14.4)
[2017-10-20 09:45] LABS: ALBUMIN 2.7 g/dL (3.5-5.0); ALBUMIN/GLOBULIN RATIO 0.8 (0.8-2.0); ANION GAP 20.7 mmol/L (8-16); CREATININE, SERUM 2.51 mg/dL (0.57-1.11); POTASSIUM 3.7 mmol/L (3.5-5.1)
[2017-10-20] MEDS ORDERED: INSULIN REGULAR, HUMAN 3ML VL 100 UNIT in SODIUM CHLORIDE 0.9% 100 ML 100 ML IV SCH ×2 (10:00)
[2017-10-20 10:45] LABS: EOSINOPHILS % (MANUAL) 1 % (0-7); LYMPHOCYTES % (MANUAL) 9 % (19-48); MONOCYTES % (MANUAL) 8 % (3.4-9.0); NEUTROPHILS % (MANUAL) 82 % (40-74)
[2017-10-20 10:46] LABS: PLATELET ESTIMATE ADEQUATE; PLATELET MORPHOLOGY COMMENT NORMAL; RBC MORPHOLOGY COMMENT NORMAL
[2017-10-21] VITALS (7 sets, daily range): BP systolic 138–152; BP diastolic 67–73
[2017-10-21] MEDS: INSULIN LISPRO 100 UNIT/1 ML 3ML VIAL SQ SCH ×6 (07:30→17:36)
[2017-10-21] MEDS: SODIUM BICARBONATE 650 MG TAB PO SCH ×2 (08:20→17:28)
[2017-10-21] MEDS: INSULIN DETEMIR 100 UNIT/ML PEN SQ SCH (08:20)
[2017-10-21] MEDS: FAMOTIDINE 20 MG TAB PO SCH (08:20)
[2017-10-21] MEDS: ASPIRIN 81 MG ENTERIC COATED PO SCH (08:20)
[2017-10-21] MEDS: METOPROLOL TARTRATE 50 MG TAB PO SCH ×2 (08:20→17:28)
[2017-10-21] MEDS: AMLODIPINE BESYLATE 10 MG TAB PO SCH (08:20)
[2017-10-21 10:54] LABS: ANION GAP 13.6 mmol/L (8-16); CALCIUM 8.6 mg/dL (8.4-10.2); CREATININE, SERUM 2.33 mg/dL (0.57-1.11); POTASSIUM 3.6 mmol/L (3.5-5.1)
[2017-10-21] MEDS ORDERED: LEVEMIR100 UNIT/1 SQ ×2 (15:20)
[2017-10-21] MEDS ORDERED: HUMALOG100 UNIT/3 SQ (15:21)
[2017-10-21] MEDS ORDERED: INSULIN DETEMIR 100 UNIT/ML PEN SQ SCH (21:00)
--- NOTE | 2017-10-30 15:04 | Diagnostic Imaging Report ---
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 May Pre-operative diagnosis: End-stage renal disease Post-operative diagnosis: End-stage renal disease Conscious Sedation: Versed 1 mg and Fentanyl 50 mcg. The patient's heart rate and pulse oximetry were continuously monitored by the interventional radiology nurse. Blood pressure was monitored at 5 minute intervals. Additional Medications: Lidocaine 1% for local anesthesia Fluoroscopy time: 1.4 minutes Dose-area Product: 363.0 cGycm2. Contrast used: 0 Estimated blood loss: Less than 5 cc Blood products administered: None Specimens: None Implants: 16 [place] Citizen, 19 cm tip-cuff tunneled hemodialysis catheter Condition at completion of procedure: Stable Disposition: Catheter lab recovery DISCUSSION: Informed consent for the procedure was obtained from the patient after discussion of risks and benefits. The right neck and upper chest was prepped and draped in the standard sterile fashion after the patient was placed in the supine position on the fluoroscopic table. 1% lidocaine was administered into the skin and subcutaneous tissues of the right lower neck for local anesthesia. Then, under continuous sonographic guidance, a 21-gauge micropuncture needle was advanced into the right internal jugular vein. A 0.018 inch wire was advanced centrally under fluoroscopic guidance. The needle was then removed and access was secured with a micropuncture sheath. Intravascular length to the upper right atrium was determined using the microwire, which was then removed along with the inner dilator of the micropuncture sheath. A 0.035 inch Amplatz was then advanced through the micropuncture sheath into the inferior vena cava under fluoroscopic guidance. Attention was then turned to the right upper chest. A suitable catheter exit site was determined, approximately 3 fingerbreadths inferior to the clavicle. The skin was marked. 1% lidocaine was used to anesthetize a subcutaneous tract extending from the planned catheter exit site to the venotomy at the right lower neck. A stab incision was made on the right upper chest. Subsequently, the catheter was tunneled from the exit site of the right upper chest to the venotomy at the right lower neck. The retention cuff of the catheter was advanced well into the subcutaneous tunnel. The micropuncture sheath was then removed over the wire and the tract was serially dilated. Finally, a 16.5[place] Citizen peel-away sheath was advanced over the wire under fluoroscopic guidance. The wire and inner dilator of the sheath were removed and the catheter was advanced through the peel-away sheath, which was then broken and removed. The catheter tip was positioned in the upper right atrium. The proximal catheter lumen showed sluggish bidirectional flow. The catheter was therefore advanced slightly into the mid right atrium, with brisk bidirectional flow noted in both catheter lumens. Each lumen was then packed with 2000 units of heparin. The catheter was secured at the exit site on the right upper chest with monofilament nylon suture. The venotomy at the right lower neck was closed with tissue adhesive. A sterile dressing was applied. The patient tolerated the procedure well without immediate complication. Findings: Patent right internal jugular vein. IMPRESSION: Successful placement of a 16 [place] Citizen, 19 cm tip-cuff tunneled hemodialysis catheter by a right internal jugular approach. Signed by: Dr. Reinaldo May M.D. on 10/17/2017 1:37 PM
== END 2017-10-21 17:57 | disposition home or self-care (01) | DRG 628 ==
LOC: ER 18:35 → ERHOLD 22:16 → ICU 10-14 00:28 → MED/SURG 10-16 15:22
PROVIDERS: ADMIT Internal Medicine; ATTEND Internal Medicine
PROC: 02HV33Z Insertion of Infusion Device into Superior Vena Cava, Percutaneous Approach (ICD-10-PCS; 2017-10-14)
PROC: 5A1D70Z Performance of Urinary Filtration, Intermittent, Less than 6 Hours Per Day (ICD-10-PCS; 2017-10-14)
PROC: 5A1D70Z Performance of Urinary Filtration, Intermittent, Less than 6 Hours Per Day (ICD-10-PCS; 2017-10-15)
PROC: 5A1D70Z Performance of Urinary Filtration, Intermittent, Less than 6 Hours Per Day (ICD-10-PCS; 2017-10-16)
PROC: 0JH63XZ Insertion of Tunneled Vascular Access Device into Chest Subcutaneous Tissue and Fascia, Percutaneous Approach (ICD-10-PCS; 2017-10-17)
PROC: 02H633Z Insertion of Infusion Device into Right Atrium, Percutaneous Approach (ICD-10-PCS; 2017-10-17)
PROC: 03180ZF Bypass Left Brachial Artery to Lower Arm Vein, Open Approach (ICD-10-PCS; principal; 2017-10-18 14:30)
PROC: 5A1D70Z Performance of Urinary Filtration, Intermittent, Less than 6 Hours Per Day (ICD-10-PCS; 2017-10-21)
DX: E11.10 Type 2 diabetes mellitus with ketoacidosis without coma (principal); K72.00 Acute and subacute hepatic failure without coma; N18.6 End stage renal disease; I12.0 Hypertensive chronic kidney disease with stage 5 chronic kidney disease or end stage renal disease; N17.9 Acute kidney failure, unspecified; E87.2 Acidosis; E11.22 Type 2 diabetes mellitus with diabetic chronic kidney disease; E11.65 Type 2 diabetes mellitus with hyperglycemia; E78.5 Hyperlipidemia, unspecified; Z79.84 Long term (current) use of oral hypoglycemic drugs; E11.21 Type 2 diabetes mellitus with diabetic nephropathy; E78.00 Pure hypercholesterolemia, unspecified; E11.51 Type 2 diabetes mellitus with diabetic peripheral angiopathy without gangrene; E11.610 Type 2 diabetes mellitus with diabetic neuropathic arthropathy
CPT/HCPCS: 36415; 36556; 36565; 36600; 51700; 71045; 74470; 76770; 76937; 77001; 77002; 80048; 80053; 80061; 81001; 82550; 82553; 82728; 82805; 82948; 83036; 83540; 83605; 83735; 83880; 84100; 84439; 84443; 84466; 84484; 85025; 85610; 85730; 86706; 87040; 87071; 87086; 87186; 87205; 87340; 90962; 93005; 93306; 94760; 96361; 96365; 96366; 96372; 99284; C1750; C1751; C1769; J0456; J0690; J0696; J1100; J1644; J1885; J1940; J2001; J2150; J2250; J2405; J7030; J7040; J7050

== ENCOUNTER 2020-10-17 20:15 | Emergency (ER) | payer OTHER ==
[~2020-10-17] VITALS: Ht 152.4 cm; Wt 80.7 kg
[~2020-10-17 20:15] MED LIST changes: +AMLODIPINE BESY10 MG PO; +HUMALOG100 UNIT/3 SQ; +LEVEMIR100 UNIT/1 SQ; +METOPROLOL TART50 MG PO
[2020-10-17 20:51] LABS: BASOPHILS # (AUTO) 0.1 (0.0-0.1); BASOPHILS % 0.5 % (0.0-1.0); EOSINOPHILS % 0.2 % (0.0-6.0); HEMATOCRIT 30.2 % (34.2-44.1); HEMOGLOBIN 9.8 g/dL (12.0-16.0); LYMPHOCYTES # (AUTO) 0.6 (1.0-3.2); LYMPHOCYTES % 4.9 % (18.0-39.1); MEAN CORPUSCULAR HEMOGLOBIN 31.2 pg (28-32); MEAN CORPUSCULAR HGB CONC 32.5 g/dL (31-35); MEAN CORPUSCULAR VOLUME 96.2 fL (81-99); MONOCYTES # (AUTO) 0.4 (0.2-0.8); MONOCYTES % 3.1 % (4.4-11.3); NEUTROPHILS # (AUTO) 11.7 (2.1-6.9); NEUTROPHILS % 90.8 % (38.7-80.0); PLATELET COUNT 268 x10e3/uL (140-360); RED BLOOD COUNT 3.14 x10e6/uL (3.6-5.1); RED CELL DISTRIBUTION WIDTH 14.4 % (11.7-14.4)
[2020-10-17 21:07] LABS: ALBUMIN 3.1 g/dL (3.5-5.0); ALBUMIN/GLOBULIN RATIO 0.6 (0.8-2.0); ANION GAP 32.1 mmol/L (8-16); CALCIUM 9.4 mg/dL (8.4-10.2); CREATININE, SERUM 6.72 mg/dL (0.57-1.11); POTASSIUM 4.1 mmol/L (3.5-5.1)
[2020-10-18] MEDS ORDERED: PIPERACILLIN/TAZOBAC 3.375 GM VIAL ONE (00:13)
[2020-10-18] MEDS ORDERED: SODIUM CHLORIDE 0.9% 50ML 50 ML ONE (00:13)
[2020-10-18] MEDS: PIPER-TAZ 3.375 GM 50 ML IV SCH ×2 (00:13→00:28)
[2020-10-18] MEDS ORDERED: BACTRIM DS TAB1 EACH PO (00:45)
[2020-10-18] MEDS ORDERED: CEPHALEXIN500 MG PO (00:45)
[2020-10-18 00:46] VITALS: BP 125/50
== END 2020-10-18 01:13 | disposition home or self-care (01) ==
LOC: ER 20:38
DX: E11.621 Type 2 diabetes mellitus with foot ulcer (principal); L97.529 Non-pressure chronic ulcer of other part of left foot with unspecified severity; I12.9 Hypertensive chronic kidney disease with stage 1 through stage 4 chronic kidney disease, or unspecified chronic kidney disease; E11.22 Type 2 diabetes mellitus with diabetic chronic kidney disease; N18.9 Chronic kidney disease, unspecified; I50.9 Heart failure, unspecified; J44.9 Chronic obstructive pulmonary disease, unspecified; E78.5 Hyperlipidemia, unspecified
CPT/HCPCS: 36415; 71045; 73630 ×2; 80053; 83880; 85025; 93005; 99283; J2543